=== PATIENT | male | born 1980 ===

== ENCOUNTER 2018-12-01 21:26 | Emergency (ER) | payer SELFPAY ==
[2018-12-01] MEDS ORDERED: cefTRIAXone IV 1 gm in Dextros 50 ML IV STA (22:26)
[2018-12-01] MEDS ORDERED: Azithromycin 500mg/250ML NS 500 MG/250 ML BAG IV STA (22:26)
[2018-12-01] MEDS ORDERED: Sodium Chloride 0.9% 1,000 ML IV ONE (22:26)
--- NOTE | 2018-12-01 22:41 | C.PDOC ---
History Of Present Illness 38 year old male presents brought to ED by family with complaint of coughing and nasal congestion for the past 4 days. Patient also complains of right-sided pleuritic chest pain that radiates to his back that is worse with inspiration. Family did not realize that he had a fever. Temperature of 102 on arrival to the ED. Patient had similar symptoms 2 years ago with a diagnosis of pneumonia. He denies palpitations, chills, weakness,nausea, vomiting, and productive cough. Time Seen by Provider: 12/01/18 22:21 Chief Complaint (Nursing): Chest Pain History Per: Patient, Family History/Exam Limitations: no limitations Onset/Duration Of Symptoms: Days (4) Current Symptoms Are (Timing): Still Present Quality: "Pain" Associated Symptoms: Dyspnea. denies: Nausea Modifying Factors: Other Indicated Below Exacerbating Factors: Deep Breathing Alleviating Factors: None Recent travel outside of the [place]: No Additional History Per: Family Past Medical History Reviewed: Historical Data, Nursing Documentation, Vital Signs Vital Signs: Last Vital Signs Temp 102.1 F H 12/01/18 21:51 Pulse 99 H 12/01/18 21:51 Resp 16 12/01/18 21:51 BP 139/80 12/01/18 21:51 Pulse Ox 95 12/01/18 21:51 Primary Care Provider: FAMILY PROVIDER,NO - Medical History PMH: Pneumonia (2 years ago) Surgical History: No Surg Hx Family History: States: Unknown Family Hx - Social History Hx Tobacco Use: No Hx Alcohol Use: Yes Hx Substance Use: No - Immunization History Hx Tetanus Toxoid Vaccination: No Hx Influenza Vaccination: No Hx Pneumococcal Vaccination: No Review Of Systems Constitutional: Positive for: Fever. Negative for: Chills, Sweats, Weakness ENT: Positive for: Nose Congestion. Negative for: Nose Discharge, Throat Pain Cardiovascular: Negative for: Palpitations Respiratory: Positive for: Cough, Shortness of Breath, Pleuritic Pain (right sided). Negative for: Sputum Gastrointestinal: Negative for: Nausea, Vomiting Musculoskeletal: Positive for: Back Pain Neurological: Negative for: Weakness, Numbness Physical Exam - Physical Exam Appears: Non-toxic, No Acute Distress Skin: Normal Color, Warm, Dry Head: Atraumatic, Normacephalic Nose: Normal, No Discharge Throat: Normal, No Erythema, No Exudate Neck: Normal ROM, Supple Chest: Symmetrical, No Deformity Cardiovascular: Rhythm Regular, Other (tachycardic) Respiratory: No Accessory Muscle Use, No Rales, Rhonchi (course, right-sided), No Wheezing, Other (pain on attempt of inspiration, NARD) Gastrointestinal/Abdominal: Bowel Sounds (normoactive), Soft, No Tenderness Extremity: Capillary Refill <2 Sec Extremity: Bilateral: Normal Color And Temperature, Normal ROM Pulses: Left Dorsalis Pedis: Normal, Right Dorsalis Pedis: Normal Neurological/Psych: Oriented x3, Normal Speech, Normal Cognition ED Course And Treatment - Laboratory Results Result Diagrams: 12/01/18 22:51 12/01/18 22:51 Lab Interpretation: Abnormal (WBC 14 with left shift) ECG: Interpreted By Me ECG Rhythm: Sinus Rhythm ECG Interpretation: Normal O2 Sat by Pulse Oximetry: 95 (in RA) Pulse Ox Interpretation: Normal - Radiology CXR: Interpreted by Me CXR Interpretation: Yes: Infiltrates (?LLL) Reevaluation Time: 00:32 Reassessment Condition: Improved Medical Decision Making Medical Decision Making: Impression: 38 year old male with complaint of nasal congestion, cough, and pleuritic chest pain for the past 4 days. Initial Plan: VBG, EKG, and CXR ordered for patient. CMP CBC blood culture Motrin PO IV fluids Zithromax Rocephin Disposition Counseled Patient/Family Regarding: Studies Performed, Diagnosis, Need For Followup - Disposition Referrals: [facility] [Outside] Disposition: HOME/ ROUTINE Disposition Time: 00:50 Condition: IMPROVED Forms: [facility] (Romansh) Print Language: KHMER - Clinical Impression Clinical Impression: Chest pain, Pleuritic pain, Fever - Scribe Statement The provider has reviewed the documentation as recorded by the Scribe (Anayeli Kennedy) All medical record entries made by the Scribe were at my direction and personally dictated by me. I have reviewed the chart and agree that the record accurately reflects my personal performance of the history, physical exam, medical decision making, and the department course for this patient. I have also personally directed, reviewed, and agree with the discharge instructions and disposition. Physician Patient Turnover Patient Signed Over To: Mike Daugherty Handoff Comments: Pending CT results.
[2018-12-01] MEDS ORDERED: Sodium Chloride 0.9% 1,000 ML ONE (22:51)
[2018-12-01 22:56] LABS: BASO % 0.1 % (0.0-2.0); EOS % 0.2 % (0.0-4.0); HEMOGLOBIN 12.8 g/dL (12.0-18.0); LYMPH % 7.3 % (20.0-40.0); MEAN CELL VOLUME 89.4 fL (80.0-94.0); MEAN CORPUSCULAR HEMOGLOBIN 30.9 pg (27.0-31.0); MEAN CORPUSCULAR HGB CONC 34.6 g/dL (33.0-37.0); MEAN PLATELET VOLUME 8.3 fL (7.2-11.7); MONO # 0.9 K/uL (0.0-0.8); MONO % 6.7 % (0.0-10.0); NEUT % 85.7 % (50.0-75.0); PLATELET COUNT 257 K/uL (130-400); RBC 4.15 Mil/uL (4.40-5.90); RED CELL DISTRIBUTION WIDTH 12.4 % (11.5-14.5)
[2018-12-01 22:59] LABS: VENOUS BLOOD GAS BASE EXCESS 1.7 mmol/L (0.0-2.0); VENOUS BLOOD GAS PCO2 45 mmHg (40-60); VENOUS BLOOD GAS PO2 17 mm/Hg (30-55); VENOUS BLOOD PH 7.39 (7.32-7.43)
[2018-12-01] MEDS ORDERED: Iodixanol 320 MG/ML 100 ML BOTTLE IV ONE (23:08)
[2018-12-01 23:10] LABS: ALB/GLOB RATIO 1.2 (1.0-2.1); ALBUMIN 4.2 g/dL (3.5-5.0); ALT/SGPT 25 U/L (21-72); AST/SGOT 25 U/L (17-59); BLOOD UREA NITROGEN 15 mg/dL (9-20); CALCIUM 8.9 mg/dl (8.6-10.4); GFR NON-AFRICAN AMERICAN > 60
[2018-12-01 23:31] LABS: BANDS 1 % (0-2); LYMPHOCYTE 9 % (20-40); MONOCYTE 9 % (0-10); NEUTROPHIL 81 % (50-75); PLATELET ESTIMATE NORMAL (NORMAL); TOTAL CELLS COUNTED 100
[2018-12-02] MEDS ORDERED: Azithromycin 500mg/250ML NS 500 MG/250 ML BAG IVPB ONE (00:27)
[2018-12-02 03:24] VITALS: BP 120/80; PULSE 88; RESP 16; TEMP 100.3; O2SAT 97
--- NOTE | 2018-12-02 08:24 | CT ---
Date of service: 12/02/2018 PROCEDURE: CT Chest with contrast (Pulmonary Angiogram) HISTORY: pleuritic chest pain, fever COMPARISON: 07/03/2016 TECHNIQUE: Axial computed tomography images were obtained of the chest in the pulmonary arterial phase of enhancement. Coronal and sagittal reformatted images were created and reviewed. Intravenous contrast dose: 100 mL Visipaque 320 Radiation dose: Total exam DLP = 411.5 mGy-cm. This CT exam was performed using one or more of the following dose reduction techniques: Automated exposure control, adjustment of the mA and/or kV according to patient size, and/or use of iterative reconstruction technique. FINDINGS: PULMONARY ARTERIES: There are no filling defects in the pulmonary arteries to suggest acute pulmonary embolism. AORTA: No acute findings. No thoracic aortic aneurysm. No aortic atherosclerotic calcification or mural plaque present. LUNGS: The lungs are well inflated. There are tree in bud opacities in the right upper lobe inferiorly, right middle lobe and in the lingula. There is subsegmental atelectasis in the right middle lobe and lingula. No focal consolidation. PLEURAL SPACES: No effusion or pneumothorax. HEART: No cardiomegaly. No significant pericardial effusion. LYMPH NODES: No pathologic mediastinal or hilar lymphadenopathy. BONES, CHEST WALL: Within normal limits for the patient's age. No fracture or destructive lesion OTHER FINDINGS: None. IMPRESSION: No CTA evidence for acute pulmonary embolism. Multifocal tree-in-bud opacities in the right upper lobe, right middle lobe and lingula which likely represents infectious bronchiolitis. A preliminary report was provided by [employer].
--- NOTE | 2018-12-02 09:15 | RAD ---
Chest x-ray single frontal view HISTORY: Pneumonia. COMPARISON: 07/02/2016 FINDINGS: Diffuse increased interstitial lung markings. Heart size within normal limits. Degenerative changes in the spine. Upper lobe granulomatous changes. IMPRESSION: Diffuse increased interstitial lung markings. Clinical correlation. Heart size within normal limits. Degenerative changes in the spine. Upper lobe granulomatous changes.
--- NOTE | 2018-12-04 12:37 | CARD ---
APPROVED REPORT Date of service: 12/01/2018 EKG Measurement Heart [id number] <Conclusion> Normal sinus rhythm Normal ECG
== END 2018-12-02 03:24 | disposition home or self-care (01) ==
LOC: C.ER 21:26
DX: J18.9 Pneumonia, unspecified organism (principal); R07.81 Pleurodynia; R50.9 Fever, unspecified
CPT/HCPCS: 71045; 71275; 80053; 82803; 85025; 87040; 93005; 96365; 96366; 96375; 99284; J0456; J0696; J7030; Q9967